=== PATIENT | male | born 1970 | race Hispanic/Latino ===

== ENCOUNTER 2021-09-14 12:56 | Inpatient (IN) | payer SELFPAY ==
[~2021-09-14] VITALS: Ht 167.6 cm; Wt 73.1 kg
[2021-09-14 14:25] LABS: LYMPHOCYTES % (AUTO) 22.8 % (21.0-51.0); MEAN CORPUSCULAR HEMOGLOBIN 34.6 pg (27.0-33.0); MEAN CORPUSCULAR HGB CONC 32.6 g/dL (32.0-36.0); MONOCYTES % (AUTO) 4.3 % (3.0-13.0); NEUTROPHILS % (AUTO) 68.9 % (40.0-77.0); NUCLEATED RED BLOOD CELLS 0.5 % (0.0-0.19); PLATELET COUNT (AUTO) 53 K/uL (130-400); RED BLOOD CELL COUNT(AUTO) 1.33 MIL/uL (4.50-6.20); RED CELL DISTRIBUTION WIDTH 24.7 % (11.0-15.5); WHITE BLOOD COUNT (AUTO) 3.7 K/uL (4.8-10.8)
[2021-09-14 14:31] LABS: INR 1.08 (0.85-1.15); PROTHROMBIN TIME 11.7 SEC (9.6-11.6)
[2021-09-14 14:33] LABS: HEMATOCRIT 14.1 % (42-54); PARTIAL THROMBOPLASTIN TIME 20.8 SEC (26.3-35.5)
[2021-09-14 14:36] LABS: POTASSIUM 4.7 mmol/L (3.5-5.1)
[2021-09-14 14:41] LABS: ALBUMIN 3.9 g/dL (3.5-5.0); BILIRUBIN,TOTAL 1.3 mg/dL (0.2-1.0); TOTAL PROTEIN, SERUM 6.8 g/dL (6.0-8.3)
[2021-09-14 15:13] LABS: APPEARANCE,URINE Clear (CLEAR); BILIRUBIN,URINE Negative (NEGATIVE); COLOR,URINE Yellow (YELLOW); GLUCOSE, URINE (UA) Negative (NEGATIVE); KETONES,URINE Negative (NEGATIVE); LEUKOCYTE ESTERASE ,URINE Negative (NEGATIVE); NITRATE,URINE Negative (NEGATIVE); OCCULT BLOOD,URINE Negative (NEGATIVE); PH,URINE 6.5 (5.0-8.0); PROTEIN,URINE Trace mg/dL (NEGATIVE)
[2021-09-14] MEDS: 0.9%NACL 1000ML 1,000 ML IV SCH (15:30)
[2021-09-14] MEDS ORDERED: DiphenhydrAMINE HCL 50 MG/ML VIAL IV PRN (15:30)
[2021-09-14] MEDS ORDERED: DIPHENHYDRAMINE HCL 25 MG CAPSULE PO PRN (15:30)
[2021-09-14] MEDS ORDERED: ONDANSETRON 4MG INJ IV PRN (15:30)
[2021-09-14] MEDS ORDERED: ACETAMINOPHEN 325 MG TAB PO PRN (15:30)
[2021-09-14] MEDS: FAMOTIDINE 20MG TAB PO SCH (21:00)
[2021-09-14 22:50] VITALS: BP 112/69
[2021-09-15 04:00] VITALS: BP 112/74
[2021-09-15] MEDS: 0.9%NACL 1000ML 1,000 ML IV SCH (04:50)
[2021-09-15 05:18] LABS: MEAN CORPUSCULAR HGB CONC 33.5 g/dL (32.0-36.0); MEAN CORPUSCULAR VOLUME 98.5 fL (79-99); NUCLEATED RED BLOOD CELLS 0.6 % (0.0-0.19); PLATELET COUNT (AUTO) 30 K/uL (130-400); RED BLOOD CELL COUNT(AUTO) 1.94 MIL/uL (4.50-6.20); RED CELL DISTRIBUTION WIDTH 23.2 % (11.0-15.5); WHITE BLOOD COUNT (AUTO) 3.4 K/uL (4.8-10.8)
[2021-09-15 05:32] LABS: HEMATOCRIT 19.1 % (42-54)
[2021-09-15 05:48] LABS: ALBUMIN 3.1 g/dL (3.5-5.0); BILIRUBIN,TOTAL 1.4 mg/dL (0.2-1.0); CREATININE 1.1 mg/dL (0.5-1.5); POTASSIUM 4.7 mmol/L (3.5-5.1); TOTAL PROTEIN, SERUM 5.6 g/dL (6.0-8.3)
[2021-09-15] MEDS ORDERED: FUROSEMIDE 20MG VIAL IV SCH (06:00)
[2021-09-15 08:00] VITALS: BP 118/90
[2021-09-15] MEDS: FAMOTIDINE 20MG TAB PO SCH ×2 (08:49→19:29)
[2021-09-15] MEDS: ACETAMINOPHEN 325 MG TAB PO PRN (08:53)
[2021-09-15 10:24] LABS: HEMATOCRIT 26.4 % (42-54)
[2021-09-15] MEDS ORDERED: LIDOCAINE 5% TOPICAL PATCH TP SCH (11:30)
[2021-09-15 12:00] VITALS: BP 151/98
[2021-09-15] MEDS ORDERED: HYDROMORPHONE 0.5 MG SYG (0.5MG/0.5ML) IVP PRN (13:30)
[2021-09-15] MEDS ORDERED: HYDROMORPHONE 0.5 MG SYG (0.5MG/0.5ML) ONE (13:33)
[2021-09-15 14:51] LABS: AMPHET/METH SCREEN,URINE NEGATIVE (NEGATIVE); BARBITURATE SCREEN, URINE NEGATIVE (NEGATIVE); BENZODIAZEPINES SCREEN,URINE NEGATIVE (NEGATIVE); CANNABINOID SCREEN,URINE NEGATIVE (NEGATIVE); COCAINE SCREEN,URINE NEGATIVE (NEGATIVE); OPIATE SCREEN,URINE NEGATIVE (NEGATIVE); PHENCYCLIDINE SCREEN,URINE NEGATIVE (NEGATIVE)
[2021-09-15 16:00] VITALS: BP 130/47
[2021-09-15 16:09] LABS: BASOPHILS % (AUTO) 0.2 % (0.0-5.0); HEMATOCRIT 26.4 % (42-54); LYMPHOCYTES % (AUTO) 12.4 % (21.0-51.0); MEAN CORPUSCULAR HEMOGLOBIN 31.7 pg (27.0-33.0); MEAN CORPUSCULAR HGB CONC 33.7 g/dL (32.0-36.0); MONOCYTES % (AUTO) 2.9 % (3.0-13.0); NEUTROPHILS % (AUTO) 82.2 % (40.0-77.0); NUCLEATED RED BLOOD CELLS 0.3 % (0.0-0.19); PLATELET COUNT (AUTO) 42 K/uL (130-400); RED BLOOD CELL COUNT(AUTO) 2.81 MIL/uL (4.50-6.20); RED CELL DISTRIBUTION WIDTH 22.5 % (11.0-15.5); WHITE BLOOD COUNT (AUTO) 6.1 K/uL (4.8-10.8)
[2021-09-15] MEDS ORDERED: FOLIC ACID 1 MG TABLET ONE (17:02)
[2021-09-15] MEDS ORDERED: THIAMINE HCL 100 MG/ML 2ML VIAL ONE (17:02)
[2021-09-15] MEDS: THIAMINE HCL 100 MG/ML 2ML VIAL IVP SCH (17:10)
[2021-09-15] MEDS: FOLIC ACID 1 MG TABLET PO SCH (17:10)
[2021-09-15] MEDS: CYANOCOBALAMIN (VITAMIN B-12) 1000 MCG/ML 1ML VIAL IM SCH (17:25)
[2021-09-15] MEDS ORDERED: MORPHINE 2 MG SYG IVP PRN (17:30)
[2021-09-15] MEDS ORDERED: MORPHINE 2 MG SYG ONE (17:34)
[2021-09-15] MEDS ORDERED: ZOSYN 3.375GM+NS 50ML 50 ML ONE (17:34)
[2021-09-15] MEDS: ZOSYN 3.375GM +NS 50ML IV SCH (17:51)
[2021-09-15] MEDS: LACTATED RINGERS 1000ML 1,000 ML IV SCH (19:30)
[2021-09-15] MEDS ORDERED: LACTATED RINGERS 1000ML 1,000 ML IV ONE (19:34)
[2021-09-15 20:00] VITALS: BP 143/86
[2021-09-15] MEDS ORDERED: MAG/ALUM/SIMETH 30 ML UDCUP ONE (22:09)
[2021-09-15] MEDS ORDERED: MAG/ALUM/SIMETH 30 ML UDCUP PO ONE (22:30)
[2021-09-16] VITALS (8 sets, daily range): BP systolic 97–134; BP diastolic 52–78
[2021-09-16] MEDS: ZOSYN 3.375GM +NS 50ML IV SCH ×3 (02:05→17:33)
[2021-09-16 07:58] LABS: LYMPHOCYTES % (AUTO) 20.6 % (21.0-51.0); MEAN CORPUSCULAR HGB CONC 34.3 g/dL (32.0-36.0); MEAN CORPUSCULAR VOLUME 93.1 fL (79-99); MONOCYTES % (AUTO) 4.1 % (3.0-13.0); NEUTROPHILS % (AUTO) 74.3 % (40.0-77.0); PLATELET COUNT (AUTO) 43 K/uL (130-400); RED BLOOD CELL COUNT(AUTO) 2.47 MIL/uL (4.50-6.20); RED CELL DISTRIBUTION WIDTH 22.5 % (11.0-15.5)
[2021-09-16 08:12] LABS: ALBUMIN 3.3 g/dL (3.5-5.0); CREATININE 0.9 mg/dL (0.5-1.5); POTASSIUM 4.3 mmol/L (3.5-5.1); TOTAL PROTEIN, SERUM 5.9 g/dL (6.0-8.3)
[2021-09-16 08:59] LABS: EOSINOPHILS % (MANUAL) 1 % (1-6); LYMPHOCYTES % (MANUAL) 29 % (22-44); MAN.DIFF COMMENT-IMPRESSION MANUAL DIFFERENTIAL; MONOCYTES % (MANUAL) 1 % (2-9); SEGMENTED NEUTROPHILS % 69 % (40-70)
[2021-09-16] MEDS: FAMOTIDINE 20MG TAB PO SCH ×2 (09:00→19:54)
[2021-09-16] MEDS: FOLIC ACID 1 MG TABLET PO SCH (09:00)
[2021-09-16] MEDS: THIAMINE HCL 100 MG/ML 2ML VIAL IVP SCH (09:00)
[2021-09-16] MEDS: CYANOCOBALAMIN (VITAMIN B-12) 1000 MCG/ML 1ML VIAL IM SCH (09:00)
[2021-09-16] MEDS ORDERED: FENTANYL CITRATE PF 50 MCG/1 ML 2ML VIAL ONE (09:54)
[2021-09-16] MEDS: LACTATED RINGERS 1000ML 1,000 ML IV SCH ×2 (10:54→19:55)
[2021-09-17] MEDS: ZOSYN 3.375GM +NS 50ML IV SCH ×3 (02:13→18:09)
[2021-09-17 04:43] VITALS: BP 100/49
[2021-09-17 05:55] LABS: HEMATOCRIT 22.5 % (42-54); MEAN CORPUSCULAR HEMOGLOBIN 31.8 pg (27.0-33.0); MEAN CORPUSCULAR HGB CONC 33.3 g/dL (32.0-36.0); MEAN CORPUSCULAR VOLUME 95.3 fL (79-99); MONOCYTES % (AUTO) 5.2 % (3.0-13.0); NEUTROPHILS % (AUTO) 64.8 % (40.0-77.0); PLATELET COUNT (AUTO) 19 K/uL (130-400); RED BLOOD CELL COUNT(AUTO) 2.36 MIL/uL (4.50-6.20); RED CELL DISTRIBUTION WIDTH 21.8 % (11.0-15.5); WHITE BLOOD COUNT (AUTO) 1.9 K/uL (4.8-10.8)
[2021-09-17 06:04] LABS: CREATININE 0.9 mg/dL (0.5-1.5); POTASSIUM 4.2 mmol/L (3.5-5.1)
[2021-09-17 06:12] LABS: HEPATITIS B CORE IGM Negative (Negative); HEPATITIS Bs ANTIGEN SCREEN P Negative (Negative)
[2021-09-17 08:05] VITALS: BP 100/68
[2021-09-17] MEDS: FAMOTIDINE 20MG TAB PO SCH ×2 (09:00→21:34)
[2021-09-17] MEDS: CYANOCOBALAMIN (VITAMIN B-12) 1000 MCG/ML 1ML VIAL IM SCH (09:00)
[2021-09-17] MEDS: FOLIC ACID 1 MG TABLET PO SCH (09:00)
[2021-09-17] MEDS: THIAMINE HCL 100 MG/ML 2ML VIAL IVP SCH (09:00)
[2021-09-17 09:48] LABS: ALBUMIN 3.3 g/dL (3.5-5.0); BILIRUBIN,DIRECT 6.2 mg/dL (0.0-0.3); BILIRUBIN,TOTAL 9.6 mg/dL (0.2-1.0)
[2021-09-17 10:40] VITALS: BP 102/63
[2021-09-17 15:24] VITALS: BP 110/68
[2021-09-17] MEDS: LACTATED RINGERS 1000ML 1,000 ML IV SCH (18:19)
[2021-09-17 20:30] VITALS: BP 120/61
[2021-09-17] MEDS: DEXAMETHASONE SOD PHOSPHATE 4 MG/ML 5ML VIAL IV SCH (21:36)
[2021-09-17 23:22] VITALS: BP 95/55
[2021-09-18] MEDS: ZOSYN 3.375GM +NS 50ML IV SCH ×3 (01:05→17:23)
[2021-09-18 04:20] VITALS: BP 117/55
[2021-09-18 05:35] LABS: HEMATOCRIT 26.4 % (42-54); LYMPHOCYTES % (AUTO) 17.9 % (21.0-51.0); MEAN CORPUSCULAR HEMOGLOBIN 31.6 pg (27.0-33.0); MONOCYTES % (AUTO) 0.5 % (3.0-13.0); NEUTROPHILS % (AUTO) 81.1 % (40.0-77.0); PLATELET COUNT (AUTO) 18 K/uL (130-400); RED BLOOD CELL COUNT(AUTO) 2.75 MIL/uL (4.50-6.20); RED CELL DISTRIBUTION WIDTH 20.9 % (11.0-15.5); WHITE BLOOD COUNT (AUTO) 2.2 K/uL (4.8-10.8)
[2021-09-18 05:59] LABS: ALBUMIN 3.7 g/dL (3.5-5.0); BILIRUBIN,TOTAL 3.3 mg/dL (0.2-1.0); POTASSIUM 4.4 mmol/L (3.5-5.1); TOTAL PROTEIN, SERUM 7.1 g/dL (6.0-8.3)
[2021-09-18 06:09] LABS: LYMPHOCYTES % (MANUAL) 13 % (22-44); MAN.DIFF COMMENT-IMPRESSION MANUAL DIFFERENTIAL; SEGMENTED NEUTROPHILS % 87 % (40-70)
[2021-09-18 06:10] LABS: PLATELET MORPHOLOGY COMMENT MARKED DECREASE
[2021-09-18 07:30] VITALS: BP 107/63
[2021-09-18] MEDS: FOLIC ACID 1 MG TABLET PO SCH (09:22)
[2021-09-18] MEDS: LACTATED RINGERS 1000ML 1,000 ML IV SCH (09:23)
[2021-09-18] MEDS: FAMOTIDINE 20MG TAB PO SCH ×2 (09:23→19:24)
[2021-09-18] MEDS: THIAMINE HCL 100 MG/ML 2ML VIAL IVP SCH (09:26)
[2021-09-18] MEDS: CYANOCOBALAMIN (VITAMIN B-12) 1000 MCG/ML 1ML VIAL IM SCH (09:37)
[2021-09-18 11:00] VITALS: BP 102/55
[2021-09-18 15:54] VITALS: BP 111/63
[2021-09-18] MEDS: DEXAMETHASONE SOD PHOSPHATE 4 MG/ML 5ML VIAL IV SCH (17:16)
[2021-09-18 20:29] VITALS: BP 122/62
[2021-09-18 23:25] VITALS: BP 97/57
[2021-09-19] MEDS: ZOSYN 3.375GM +NS 50ML IV SCH ×3 (00:14→17:11)
[2021-09-19 04:14] VITALS: BP 111/74
[2021-09-19 07:19] LABS: HEMATOCRIT 24.6 % (42-54); LYMPHOCYTES % (AUTO) 22.4 % (21.0-51.0); MEAN CORPUSCULAR HEMOGLOBIN 31.9 pg (27.0-33.0); MEAN CORPUSCULAR HGB CONC 32.9 g/dL (32.0-36.0); MEAN CORPUSCULAR VOLUME 96.9 fL (79-99); MONOCYTES % (AUTO) 4.7 % (3.0-13.0); NEUTROPHILS % (AUTO) 72.1 % (40.0-77.0); NUCLEATED RED BLOOD CELLS 0.5 % (0.0-0.19); PLATELET COUNT (AUTO) 22 K/uL (130-400); RED BLOOD CELL COUNT(AUTO) 2.54 MIL/uL (4.50-6.20); RED CELL DISTRIBUTION WIDTH 20.1 % (11.0-15.5); WHITE BLOOD COUNT (AUTO) 3.8 K/uL (4.8-10.8)
[2021-09-19 07:28] LABS: INR 1.03 (0.85-1.15); PROTHROMBIN TIME 11.2 SEC (9.6-11.6)
[2021-09-19 07:29] LABS: PARTIAL THROMBOPLASTIN TIME 21.5 SEC (26.3-35.5)
[2021-09-19 07:30] VITALS: BP 102/58
[2021-09-19 07:30] LABS: ALBUMIN 3.8 g/dL (3.5-5.0); BILIRUBIN,TOTAL 2.5 mg/dL (0.2-1.0); CREATININE 0.9 mg/dL (0.5-1.5); POTASSIUM 3.8 mmol/L (3.5-5.1); TOTAL PROTEIN, SERUM 7.1 g/dL (6.0-8.3)
[2021-09-19] MEDS: THIAMINE HCL 100 MG TABLET PO SCH (09:04)
[2021-09-19] MEDS: FAMOTIDINE 20MG TAB PO SCH ×2 (09:04→19:38)
[2021-09-19] MEDS: FOLIC ACID 1 MG TABLET PO SCH (09:04)
[2021-09-19] MEDS: CYANOCOBALAMIN (VITAMIN B-12) 100 MCG TABLET PO SCH (09:07)
[2021-09-19 11:00] VITALS: BP 97/54
[2021-09-19] MEDS: DEXAMETHASONE SOD PHOSPHATE 4 MG/ML 5ML VIAL IV SCH (12:27)
[2021-09-19 16:00] VITALS: BP 105/61
[2021-09-19 19:31] VITALS: BP 103/58
[2021-09-19 23:45] VITALS: BP 97/53
[2021-09-20] MEDS: ZOSYN 3.375GM +NS 50ML IV SCH ×3 (00:27→17:06)
[2021-09-20 04:12] VITALS: BP 102/60
[2021-09-20 06:24] LABS: BASOPHILS % (AUTO) 0.1 % (0.0-5.0); HEMATOCRIT 25.5 % (42-54); LYMPHOCYTES % (AUTO) 21.4 % (21.0-51.0); MEAN CORPUSCULAR HEMOGLOBIN 31.9 pg (27.0-33.0); MEAN CORPUSCULAR HGB CONC 31.8 g/dL (32.0-36.0); MEAN CORPUSCULAR VOLUME 100.4 fL (79-99); MONOCYTES % (AUTO) 6.3 % (3.0-13.0); NEUTROPHILS % (AUTO) 70.3 % (40.0-77.0); NUCLEATED RED BLOOD CELLS 0.9 % (0.0-0.19); PLATELET COUNT (AUTO) 32 K/uL (130-400); RED BLOOD CELL COUNT(AUTO) 2.54 MIL/uL (4.50-6.20); RED CELL DISTRIBUTION WIDTH 20.2 % (11.0-15.5); WHITE BLOOD COUNT (AUTO) 7.8 K/uL (4.8-10.8)
[2021-09-20 06:40] LABS: ALBUMIN 3.7 g/dL (3.5-5.0); BILIRUBIN,TOTAL 1.5 mg/dL (0.2-1.0); POTASSIUM 4.1 mmol/L (3.5-5.1); TOTAL PROTEIN, SERUM 6.9 g/dL (6.0-8.3)
[2021-09-20 08:03] VITALS: BP 118/66
[2021-09-20] MEDS: ACETAMINOPHEN 325 MG TAB PO PRN (09:15)
[2021-09-20] MEDS: CYANOCOBALAMIN (VITAMIN B-12) 100 MCG TABLET PO SCH (09:16)
[2021-09-20] MEDS: THIAMINE HCL 100 MG TABLET PO SCH (09:16)
[2021-09-20] MEDS: FAMOTIDINE 20MG TAB PO SCH ×2 (09:16→20:10)
[2021-09-20] MEDS: FOLIC ACID 1 MG TABLET PO SCH (09:16)
[2021-09-20 11:21] VITALS: BP 121/56
[2021-09-20] MEDS: DEXAMETHASONE SOD PHOSPHATE 4 MG/ML 5ML VIAL IV SCH (12:11)
[2021-09-20 16:07] VITALS: BP 124/68
[2021-09-20 20:30] VITALS: BP 106/60
[2021-09-20 23:00] VITALS: BP 117/63
[2021-09-21 04:28] VITALS: BP 127/67
[2021-09-21] MEDS: ZOSYN 3.375GM +NS 50ML IV SCH ×2 (04:29→10:04)
[2021-09-21 07:55] VITALS: BP 113/61
[2021-09-21 08:12] LABS: BASOPHILS % (AUTO) 0.2 % (0.0-5.0); HEMATOCRIT 27.3 % (42-54); LYMPHOCYTES % (AUTO) 16.2 % (21.0-51.0); MEAN CORPUSCULAR HEMOGLOBIN 31.9 pg (27.0-33.0); MEAN CORPUSCULAR HGB CONC 31.9 g/dL (32.0-36.0); MONOCYTES % (AUTO) 9.3 % (3.0-13.0); NEUTROPHILS % (AUTO) 67.6 % (40.0-77.0); NUCLEATED RED BLOOD CELLS 2.8 % (0.0-0.19); PLATELET COUNT (AUTO) 54 K/uL (130-400); RED BLOOD CELL COUNT(AUTO) 2.73 MIL/uL (4.50-6.20); RED CELL DISTRIBUTION WIDTH 23.3 % (11.0-15.5); WHITE BLOOD COUNT (AUTO) 10.7 K/uL (4.8-10.8)
[2021-09-21 08:27] LABS: ALBUMIN 3.6 g/dL (3.5-5.0); BILIRUBIN,TOTAL 1.2 mg/dL (0.2-1.0); POTASSIUM 4.2 mmol/L (3.5-5.1); TOTAL PROTEIN, SERUM 6.8 g/dL (6.0-8.3)
[2021-09-21] MEDS: THIAMINE HCL 100 MG TABLET PO SCH (10:05)
[2021-09-21] MEDS: FOLIC ACID 1 MG TABLET PO SCH (10:05)
[2021-09-21] MEDS: FAMOTIDINE 20MG TAB PO SCH (10:05)
[2021-09-21] MEDS: CYANOCOBALAMIN (VITAMIN B-12) 100 MCG TABLET PO SCH (10:05)
[2021-09-21 11:01] LABS: HEMOGLOBIN A1C 6.2 % (4.0-6.0)
[2021-09-21 11:50] VITALS: BP 108/69
[2021-09-21] MEDS: DEXAMETHASONE SOD PHOSPHATE 4 MG/ML 5ML VIAL IV SCH (11:56)
[2021-09-21] MEDS ORDERED: DEXA4 PO (12:55)
[2021-09-21] MEDS ORDERED: AMOX-426 PO (12:55)
[2021-09-21] MEDS ORDERED: FAMO20TA8 PO (12:55)
== END 2021-09-21 14:45 | disposition home or self-care (01) | DRG 809 ==
LOC: EDH 12:56 → EDHIP 12:57 → 4AH 22:20 → 3BH 09-20 22:43
PROVIDERS: ADMIT Hospitalist; ATTEND Hospitalist
PROC: 30233N1 Transfusion of Nonautologous Red Blood Cells into Peripheral Vein, Percutaneous Approach (ICD-10-PCS; 2021-09-14)
PROC: 07DR3ZX Extraction of Iliac Bone Marrow, Percutaneous Approach, Diagnostic (ICD-10-PCS; principal; 2021-09-16)
DX: D61.818 Other pancytopenia (principal); D59.10 Autoimmune hemolytic anemia, unspecified; K81.0 Acute cholecystitis; D70.9 Neutropenia, unspecified; K76.0 Fatty (change of) liver, not elsewhere classified; Z20.822 Contact with and (suspected) exposure to COVID-19; R53.81 Other malaise; K82.8 Other specified diseases of gallbladder; Z91.19 Patient's noncompliance with other medical treatment and regimen; Z91.14 Patient's other noncompliance with medication regimen; Z83.3 Family history of diabetes mellitus; Z82.0 Family history of epilepsy and other diseases of the nervous system
CPT/HCPCS: 36415; 36430; 38222; 70450; 71045; 74181; 76705; 78226; 80048; 80053; 80074; 80076; 80305; 81003; 82270; 82550; 82948; 83010; 83036; 83540; 83550; 83615; 84484; 85014; 85018; 85025; 85027; 85610; 85730; 86701; 86850; 86880; 86900; 86901; 86923; 87040; 87088; 87390; 87635; 88184; 88185; 93005; 99291; A9537; C9803; G0378; J1100; J1170; J1940; J2405; J2543; J3010; J3411; J3420; J7030; J7120; P9016